=== PATIENT | male | born 1965 | race African-American/Black ===

== ENCOUNTER → 2017-10-05 12:23 | Outpatient (CLI) | payer BC | END | disposition home or self-care (01) | LOC: D.MRI 12:23 | DX: S29.011A Strain of muscle and tendon of front wall of thorax, initial encounter (principal) ==

== ENCOUNTER → 2019-12-06 09:38 | Outpatient (CLI) | payer BC ==
--- NOTE | ~2019-12-06 | EC ---
PATIENT:MARCIN LIM JR DATE OF SERVICE: 12/06/19 SEX: M MEDICAL RECORD: [id number] DATE OF : [birth year] [facility] AGE OF PAT[facility]: 54 ADMISSION DATE: 12/06/19 REFERRING PHYSICIAN: INTERPRETING PHYSICIAN: PAMELA KELLY MD ECHOCARDIOGRAM REPORT ECHO CHARGES 4 ECHO COMPLETE Date: 12/06/19 CLINICAL DIAGNOSIS: CP ECHOCARDIOGRAPHIC MEASUREMENTS (adult normal given) AC root (d.<3.7cm) 3.2 cm LV Septum d (<1.2 cm> 1.1 cm Valve Excursion 2.0 cm LV Septum (systole) 2.0 cm Left Atria (s.<4.0cm> 4.0 cm LVPW d(<1.2cm) 1.3 cm RV (d.<2.3cm) 2.5 cm LVPW (sytole) 2.0 cm LV diastole(<5.6CM) 4.8 cm MV E-F(>70mm/sec) cm LV systole 2.0 cm LVOT Diameter 2.0 cm MV exc.(>10mm) cm Est.ejection fraction (50-75%) % DOPPLER: LVIT cm/sec A cm/sec E 86.0 cm/sec LA cm/sec RVSP 15.2 mmHg LVOT 77.0 cm/sec AOP1/2T m/s Asc. Ao 135 cm/sec RVOT 55.0 cm/sec RA cm/sec PA 89.0 cm/sec AV Gradient Peak 7.2 mmHg AV Mean 4.3 mmHg AV Area 1.7 cm MV Gradient Peak 4.9 mmHg MV Mean 1.6 mmHg MV Area cm COMMENTS: OP - HC Morning Caregiver: 1 SHANTA CHUNGOE Client Account Representative: 3 Dr. Varma TAPE# PACS Pericardial Effusion N DATE OF SERVICE: Borderline LVH. LV internal dimensions are normal. Wall motion is normal. EF is greater than or equal to 55%. Aortic valve is tricuspid. No evidence of stenosis by Doppler interrogation. Left atrium is normal 4 cm. Mitral valve shows no prolapse. Trivial MR. Right-sided chambers are grossly normal. Trivial TR. TRANSINT:[id number] Voice Confirmation ID: [id number] DOCUMENT ID: [id number] ECHOCARDIOGRAM REPORT [id number] RAPHAELDOUGLASMP Richards PAMELA HACKETT MD CC: [id number] DICTATION DATE: 12/06/191425 AUTO BUMPER MECHANIC: 12/06/19 [address] [facility] [address] [id number]
== END | disposition home or self-care (01) ==
LOC: D.HCCECHO 09:38 → D.HCCARDIO 14:30
PROVIDERS: ATTEND Internal Medicine Interventional Cardiology
DX: R07.9 Chest pain, unspecified (principal)

== ENCOUNTER 2020-02-08 11:01 | Outpatient (CLI) | payer BC ==
[~2020-02-08] VITALS: Ht 177.8 cm; Wt 109.5 kg
--- NOTE | ~2020-02-08 | HEMODYNAMI ---
PATIENT:MARCIN LIM JR MEDICAL RECORD: [id number] : 69 LOCATION:[facility] ADMISSION DATE: 02/08/20 Generatedon:02/08/202012:54 Patient name: MARCIN LIM Patient #: [id number] SSN: [id number] : 1965 Date of study: 02/08/2020 Page: Of Hemodynamic Procedure Report Patient Data Patient Demographics Procedure consent was obtained First Name: MARCIN Gender: Male Last Name: RAPHAEL Suffix: [facility] Initial: Maurice : 1965 Patient #: [id number] Age: 54 year(s) Race: Black SSN: [id number] Additional ID: [id number] Contact details [address]: [address] [place] [address] State: [place] City: [place] Zip code: [address] Past Medical History Allergies: No known allergies Admission Admission Data Admission Date: 02/08/2020 Admission Time: 11:01 Procedure Procedure Types Cath Procedure Diagnostic Procedure Cardioversion External Procedure Description Procedure Date Procedure Date: 02/08/2020 Procedure Start Time: 12:39 Procedure End Time: 12:50 Procedure Staff Name Function Reymundo Alcantar MD Performing Physician Lucila Baez RN Nurse Kian Bradford RT Scrub Ale Acosta RT Monitor Morales Martinez CRNA Additional personnel Procedure Data Procedure Complications No complications Procedure Medications Medication Administration Route Dosage 0.9% NaCl I.V. 100 ml/hr Oxygen etCO2 Nasal cannula 2 l/min Refer to Anesthesia Notes for Sedation Medications Hemodynamics Rest Heart Rate: 94 (bpm) Snapshots Pre Cath Intra NCS Post Cath Vital Signs Time Heart Resp SPO2 etCO2 NIBP (mmHg) Rhythm Pain Sedation Rate (ipm) (%) (mmHg) Status Level (bpm) 12:31:42 91 14 100 33.1 156/89(123) A-Flutter 0 (11) 10(A) , No pain 12:36:12 91 13 100 30.8 143/103(119) A-Flutter 0 (11) 10(A) , No pain 12:41:11 96 21 100 22 Measuring NSR 0 (11) 5(A) , No pain 12:41:21 97 28 98 28 125/81(101) NSR 0 (11) 5(A) , No pain 12:45:33 92 23 98 23.3 101/64(89) NSR 0 (11) 5(A) , No pain 12:50:32 82 15 100 31.6 Measuring NSR 0 (11) 5(A) , No pain 12:50:40 85 16 100 24.8 127/86(105) NSR 0 (11) 10(A) , No pain Medications Time Medication Route Dose Verified Delivered Reason Notes Effective ness by by 12:27:59 0.9% NaCl I.V. 100 Reymundo Gaytan used for ml/hr [facility] procedure RN 12:28:06 Oxygen etCO2 2 Reymundo Gaytan used for Nasal l/min [facility] procedure cannula RN 12:28:16 Refer to Reymundo Dwyer for Anesthesia [facility] sedation Notes for MD MCKEON Sedation Medications Procedure Log Time Note 12:19:17 Informed consent obtained and on chart 12:20:15 Procedure Status Cardioversion. 12:20:19 Kian Bradford RT(R) sent for patient. Start room use. 12:20:21 Time tracking: Regular hours (M-F 7:00 - 5:00) 12:20:29 Plan of Care:Hemodynamics will remain stable., Cardiac rhythm will remain stable., Comfort level will be maintained., Respiratory function will remain adequate., Patient/ family verbilizes understanding of procedure., Procedure tolerated without complication., Recovers from procedure without complications.. 12:23:44 Patient arrived from Pre/Post Procedure Room to [facility] 1. Patient remains on bed/stretcher for procedure. 12:23:46 Warm blankets applied, and dion hugger turned on for patient comfort. 12:23:47 Correct patient and procedure confirmed by team. 12:23:48 ECG and BP/O2 sat monitors applied to patient. 12:23:59 Quick Combo opened to sterile field. 12:26:56 Vital chart was started 12:27:17 Baseline sample Acquired. 12::28 Rhythm: atrial fibrillation 12::31 Full Disclosure recording started 12:27:33 - 12:27:39 H&P Date Dictated: 02/08/2020 H&P Addendum completed by physician on day of procedure. (MUST COMPLETE FOR ALL OUTPATIENTS), New H&P dictated by physician.. 12:27:41 Pre-procedure instructions explained to patient. 12:27:42 Pre-op teaching completed and patient verbalized understanding. 12::45 Family unavailable. 12::48 Patient NPO since Midnight. 12:27:59 0.9% NaCl 100 ml/hr I.V. was administered by Lucila Baez RN; used for procedure; Verbal order read back and verified. 12:28:06 Oxygen 2 l/min etCO2 Nasal cannula was administered by Lucila Baez RN ; used for procedure; Verbal order read back and verified. 12:28:16 Refer to Anesthesia Notes for Sedation Medications was administered by Reymundo Alcantar MD; for sedation; Verbal order read back and verified. 12:28:44 Patient allergic to No known allergies 12:28:56 Is the patient allergic to Iodine/contrast media? No. 12:29:04 Was the patient premedicated? Yes 12:29:08 Is patient on blood thinner?Yes 12:29:13 ACC The patient was administered the following blood thiners within the last 24 hours: Xarelto 12:29:18 Patient diabetic? Yes. 12:29:29 If diabetic: On Metformin? Yes 12:29:43 ----Pre-sedation anethsthesia assessment.---- 12:29:50 Previous problem with sedation/anesthesia? No ? 12:29:53 Snore? Yes 12:29:56 Sleep apnea? No 12:29:59 Deviated septum? Unknown 12:30:01 Opens mouth fully? Yes 12:30:04 Sticks out tongue? Yes 12:30:08 Airway obstruction? No ? 12:30:12 Dentures? No ? 12:31:21 Morales Martinez CRNA present and monitoring patient for TIVA. 12:36:40 IV patent on arrival in left forearm with 0.9% NaCl at KVO. 12:36:49 Physician arrived 12:36:55 --------ALL STOP TIME OUT------ 12:36:55 Final Timeout: patient, procedure, and site verified with staff and physician. All members of the team are in agreement. 12:37:30 Fire Safety Assessment: B--The operative or invasive procedure is being performed above the xiphoid process or in the oropharynx., C--Open oxygen or nitrous oxide is being used., E--There are other possible contributors. 12:37:44 Sedation plan: TIVA Medication:Propofol 12:39:23 Procedure started. 12:39:39 ------Cardioversion------ 12:39:47 Quick combo pads placed on patients chest and back. 12:40:05 Defibrillator synced and charged to 200 Joules. 12:40:07 Shock delivered. 12:40:31 Patient cardioverted to sinus rhythm . 12:40:49 Procedure ended.(Physican Out) 12:45:53 Post procedure instruction explained to patient.Patient verbalizes understanding. 12:45:55 Patient needs reinforcement of post procedure teaching. 12:46:10 Procedure and supply charges have been captured, reviewed, submitted an d are correct. 12:46:38 Procedure Complication : No complications 12:50:38 Vital chart was stopped 12:50:41 Operative report dictated upon procedure completion. 12:50:42 See physician's report for complete and final results. 12:50:45 Report given to Pre/Post Procedure Room. 12:50:50 Patient transfered to Pre/Post Procedure Room with Stretcher. 12:50:54 Procedure ended. 12:50:54 Full Disclosure recording stopped 12:50:56 End room use (Document Last) Device Usage Item Manufacture Quantity Catalog Hospital Part Current Minimal Lot# / Name Number Charge Number Stock Stock Laytoni al# Code [employer] 1 [id number] Combo Signature Audit [place] Stage Time Signature Unsigned Intra-Procedure 02/08/2020 Ale 12:51:16 PM Karla RT(R) (CV) Intra-Procedure 02/08/2020 Lucila Baez 12:51:40 PM RN Intra-Procedure 02/08/2020 Reymundo Mcdonald 12:52:09 PM Steven MCKEON [facility] [address] [place] [address]
[2020-02-08] MEDS ORDERED: GLUCOPHAGE1000 MG PO (11:21)
[2020-02-08] MEDS ORDERED: VASOTEC5 MG PO (11:21)
[2020-02-08] MEDS ORDERED: JARDIANCE25 MG PO (11:21)
[2020-02-08] MEDS ORDERED: GLYBURIDE MICRON3 MG PO (11:21)
[2020-02-08] MEDS ORDERED: XARELTO20 MG PO (11:22)
[2020-02-08] MEDS ORDERED: PROPAFENONE HC225 MG PO (11:22)
[2020-02-08] MEDS ORDERED: PRAVACHOL20 MG PO (11:22)
[2020-02-08 11:59] VITALS: BP 141/87; Ht 177.8 cm; Wt 109.5 kg
[2020-02-08 12:15] LABS: BASOPHILS 0.2 % (0-2); EOSINOPHILS 0.9 % (0-7); HEMATOCRIT 44.7 % (42.0-54.0); HEMOGLOBIN 14.4 g/dL (13.5-17.5); LYMPHOCYTES 32.8 % (15-50); MCH 29.8 pg (26.0-34.0); MCHC 32.2 g/dL (31.0-37.0); MCV 92.4 fL (80.0-100.0); MEAN PLATELET VOLUME 9.7 fL (7.4-10.4); MONOCYTES 6.3 % (2-11); NEUTROPHILS 59.8 % (40-80); PLATELET COUNT 328 10x3/uL (130-400); RBC 4.84 10x6/uL (4.20-6.10); RDW 12.3 % (11.5-14.5); WBC 4.6 10x3/uL (4.8-10.8)
[2020-02-08 12:29] LABS: INR 1.09 (0.85-1.17)
[2020-02-08 12:30] LABS: CALC OSMOLALITY 279 mosm/kg (275-300); CALCIUM 9.1 mg/dL (8.5-10.1); CARBON DIOXIDE 26.1 mmol/L (21.0-32.0); CHLORIDE - SERUM 103 mmol/L (98-107); GLUCOSE 108 mg/dL (74-106); POTASSIUM - SERUM 4.3 mmol/L (3.5-5.1); SODIUM 139 mmol/L (136-145); UREA NITROGEN 14 mg/dL (7-18); eGFR NON AFRICAN AMERICAN 83 mL/min (90-120)
--- NOTE | 2020-02-08 13:06 | NUR ---
PT ARRIVED BY STRETCHER. PLACED ON MONITORS. ASSESSMENT COMPLETED. VSS AT THIS TIME. PT IN NSR. RATE 86. FAMILY AT BEDSIDE. CALL LIGHT WITHIN REACH.
--- NOTE | 2020-02-08 13:20 | NUR ---
PT RESTING COMFORTABLY. VSS. PT STILL IN NSR. HR84. BP STABLE. NO NEEDS AT THIS TIME. CALL LIGHT WITHIN REACH. PT ALERT AND ORIENTED.
--- NOTE | 2020-02-08 13:30 | NUR ---
DISCUSSED DISCHARGE INSTRUCTIONS WITH PT AND PT'S . THEY VOICED UNDERSTANDING. PT STILL IN NSR. HR 84.
--- NOTE | 2020-02-08 13:45 | NUR ---
PIV D/C'D WITH CATH TIP INTACT. TOLERATED WELL. PT STILL IN NSR. VSS. PT INSTRUCTED TO GET UP AND DRESSED AT THIS TIME. NO ASSISTANCE NEEDED.
--- NOTE | 2020-02-08 14:00 | NUR ---
PT AMBULATED TO RESTROOM. VOIDED WITHOUT DIFFICULTY. STEADY GAIT NOTED. PT AMBULATED TO VEHICLE. REFUSED WHEELCHAIR. NO S/S OF DISTRESS NOTED. ALL BELONGINGS AND PAPERWORK IN HAND.
--- NOTE | 2020-02-08 14:16 | OP ---
PATIENT NAME: MARCIN WHITT JR MEDICAL RECORD: [id number] :69 LOCATION:[facility] ADMISSION DATE: SURGEON: PAMELA KELLY MD DATE OF OPERATION: 02/08/2020 PROCEDURE: Cardioversion. DESCRIPTION OF PROCEDURE: After general sedation via TIVA via anesthesia, a single synchronized shock was successful in restoring atrial fibrillation to normal sinus rhythm. IMPRESSION: Successful cardioversion on Marcin Whitt. During the procedure, the patient was monitored continuously with pulse oximetry, telemetry and blood pressure. TRANSINT:[id number] Voice Confirmation ID: [id number] DOCUMENT ID: [id number] PAMELA KELLY MD at 1416 CC: [id number] DICTATION DATE: 02/08/20 1243 STILL CLEANER TUBE: 02/08/20 1259 DEP CLI 02/08/20 [id number] [place] [address]
== END 2020-02-08 14:00 | disposition home or self-care (01) ==
LOC: D.CATH 11:01
PROVIDERS: ATTEND Internal Medicine Interventional Cardiology
DX: I48.91 Unspecified atrial fibrillation (principal); I10 Essential (primary) hypertension; E78.5 Hyperlipidemia, unspecified; E11.9 Type 2 diabetes mellitus without complications; I20.9 Angina pectoris, unspecified

== ENCOUNTER → 2020-04-17 09:18 | Outpatient (CLI) | payer BC ==
[2020-02-08 11:59] VITALS: BMI 34.6
[~2020-04-17 09:18] MED LIST: GLUCOPHAGE1000 MG PO; GLYBURIDE MICRON3 MG PO; JARDIANCE25 MG PO; PRAVACHOL20 MG PO; PROPAFENONE HC225 MG PO; VASOTEC5 MG PO; XARELTO20 MG PO
== END | disposition home or self-care (01) ==
LOC: D.HCCARDIO 09:00
PROVIDERS: ATTEND Internal Medicine Cardiovascular Disease
DX: I20.9 Angina pectoris, unspecified (principal)